=== PATIENT | female | born 1990 | race Caucasian/White ===

== ENCOUNTER 2016-11-16 18:32 | Emergency (ER) | payer OTHER ==
[~2016-11-16] VITALS: Ht 160 cm; Wt 55.0 kg
[2016-11-16 18:45] VITALS: Ht 160 cm; Wt 55.0 kg
[2016-11-16] MEDS ORDERED: SOD CHLORIDE 0.9% 1,000 ML IV STA (18:48)
[2016-11-16 20:00] LABS: ADD UMIC YES; UR ASCORBIC ACID 40 mg/dL (NEGATIVE); UR BACTERIA FEW /HPF (NONE SEEN); UR BILIRUBIN (Dip) NEGATIVE (NEGATIVE); UR BLOOD (Dip) NEGATIVE (NEGATIVE); UR CLARITY SLIGHTLY CLOUDY (CLEAR); UR COLOR YELLOW (YELLOW); UR GLUCOSE (Dip) NEGATIVE (NEGATIVE); UR KETONES (Dip) NEGATIVE (NEGATIVE); UR LEUKOCYTE ESTERASE (Dip) NEGATIVE Leu/ul (NEGATIVE); UR MUCUS MANY /HPF (NONE SEEN); UR NITRITE (Dip) NEGATIVE (NEGATIVE); UR RBC 1 /HPF (0-5); UR SPECIFIC GRAVITY (Dip) 1.031 (1.003-1.030); UR SQUAMOUS EPITHELIAL CELL FEW /HPF (FEW); UR TOTAL PROTEIN (Dip) 2+ mg/dl (NEGATIVE); UR UROBILINOGEN (Dip) NEGATIVE (NEGATIVE)
[2016-11-16 20:12] LABS: BASOPHILS % 0.3 % (0.0-2.0); EOSINOPHILS % 0.2 % (0.0-7.0); HEMATOCRIT 30.6 % (37.0-47.0); HEMOGLOBIN 9.3 g/dl (12.0-16.0); LYMPHOCYTES # 1.1 10^3/ul (0.8-2.9); LYMPHOCYTES % 16.4 % (15.0-51.0); MEAN CORPUSCULAR HEMOGLOBIN 25.7 pg (29.0-33.0); MEAN CORPUSCULAR HGB CONC 30.4 g/dl (32.0-37.0); MEAN CORPUSCULAR VOLUME 84.5 fl (82.0-101.0); MEAN PLATELET VOLUME 8.6 fl (7.4-10.4); MONOCYTE # 0.6 10^3/ul (0.3-0.9); MONOCYTES % 8.4 % (0.0-11.0); NEUTROPHILS % 74.5 % (39.0-77.0); PLATELET COUNT 395 10^3/UL (140-415); RED BLOOD COUNT 3.62 10^6/ul (4.20-5.40); RED CELL DISTRIBUTION WIDTH 15.2 % (11.5-14.5); WHITE BLOOD COUNT 6.6 10^3/ul (4.8-10.8)
[2016-11-16 20:30] VITALS: TEMP 98.3
[2016-11-16 20:32] LABS: ALANINE AMINOTRANSFERASE 23 IU/L (13-69); ALBUMIN 4.3 g/dl (3.3-4.9); ALBUMIN/GLOBULIN RATIO 1.16; ALKALINE PHOSPHATASE 55 IU/L (42-121); ANION GAP 16 (8-16); ASPARTATE AMINO TRANSFERASE 23 IU/L (15-46); BILIRUBIN,INDIRECT 0.9 mg/dl (0-1.1); BILIRUBIN,TOTAL 0.9 mg/dl (0.2-1.3); BLOOD UREA NITROGEN 22 mg/dl (7-20); CALCIUM 8.9 mg/dl (8.4-10.2); CARBON DIOXIDE 20 mmol/L (21-31); CHLORIDE 112 mmol/L (97-110); CREATININE 0.78 mg/dl (0.44-1.00); GLUCOSE 83 mg/dl (70-220); POTASSIUM 3.5 mmol/L (3.5-5.1); SODIUM 144 mmol/L (135-144)
[2016-11-16 20:35] LABS: BARBITURATES Negative (NEGATIVE); BENZODIAZEPINES Negative (NEGATIVE); CANNABINOIDS Negative (NEGATIVE)
[2016-11-16 20:36] LABS: COCAINE POSITIVE (NEGATIVE); OPIATES POSITIVE (NEGATIVE)
[2016-11-16 20:37] LABS: ACETAMINOPHEN < 10.0 ug/ml (10.0-30.0); ETHANOL < 10.0 mg/dl; SALICYLATE < 1.0 mg/dl (5.0-30.0)
--- NOTE | 2016-11-16 22:09 | PSY ---
Date/Time of Note Date/Time of Note DATE: 11/16/16 TIME: 22:02 Psychiatric Subjective Eval Consent Pt consented to telemedicine: Yes Subjective Evaluation Patient location: emergency Chief Complaint: BIBA for possible overdose and ETOH Reason for consult: Evaluation History of present illness Pt is a 26 year old female with a history of childhood trauma who was brought in by ambulance after being found unconscious by her family. Pt reports she drank "a lot" and used meth today. She has been using meth daily for about two years. She also misuses alcohol. Pt reports feeling depressed. She has tried medications and is currently in counseling but feels alone with her trauma. Patient does admit to suicidal ideation at times but denies this was a suicide attempt. Pt is interested in discontinuing her drug use. Past psychiatric history History of therapy but has recently started with a new counselor. Antidepressant medications have been tried. Pt is using trazodone for insomnia. Hospitalization: no Family History Denies Medical history Reports recent kidney infection and using an antibiotic Substance Abuse Substance abuse history: Yes (meth, alcohol) Social History Marital status: single Level of education: HS DPA/Conservatorship: No Occupation/Halfway: N/A Psychiatric Objective Eval Mental Status Examination: Appearance: Groomed Eye Contact: Good Psychomotor Activity: Normal Behavior: Cooperative Speech: Clear AFFECT: Appropriate, Depressed Mood: Appropriate/Full, Depressed Though Process: Linear Thought Content: Normal Suicidal: No Homicidal: No On 72 hour hold: No Orientation: x4 Cognition: Alert Insight: Intact Judgement: Impared Attention Span: Intact Laboratory Results Laboratory Tests Test 11/16/16 19:00 11/16/16 19:06 11/16/16 19:24 White Blood Count 6.610^3/ul Red Blood Count 3.6210^6/ul Hemoglobin 9.3g/dl Hematocrit 30.6% Mean Corpuscular Volume 84.5fl Mean Corpuscular Hemoglobin 25.7pg Mean Corpuscular Hemoglobin Concent 30.4g/dl Red Cell Distribution Width 15.2% Platelet Count 45485^3/UL Mean Platelet Volume 8.6fl Neutrophils % 74.5% Lymphocytes % 16.4% Monocytes % 8.4% Eosinophils % 0.2% Basophils % 0.3% Nucleated Red Blood Cells % 0.0/100WBC Neutrophils # (Manual) 4.910^3/ul Lymphocytes # 1.110^3/ul Monocytes # 0.610^3/ul Eosinophils # 0.010^3/ul Basophils # 0.010^3/ul Nucleated Red Blood Cells # 0.010^3/ul Sodium Level 144mmol/L Potassium Level 3.5mmol/L Chloride Level 112mmol/L Carbon Dioxide Level 20mmol/L Anion Gap 16 Blood Urea Nitrogen 22mg/dl Creatinine 0.78mg/dl Glucose Level 83mg/dl Calcium Level 8.9mg/dl Total Bilirubin 0.9mg/dl Direct Bilirubin 0.00mg/dl Indirect Bilirubin 0.9mg/dl Aspartate Amino Transf (AST/SGOT) 23IU/L Alanine Aminotransferase (ALT/SGPT) 23IU/L Alkaline Phosphatase 55IU/L Total Protein 8.0g/dl Albumin 4.3g/dl Globulin 3.70g/dl Albumin/Globulin Ratio 1.16 Serum HCG, Qualitative NEGATIVE Salicylates Level < 1.0mg/dl Acetaminophen Level < 10.0ug/ml Ethyl Alcohol Level < 10.0mg/dl Bedside Glucose 81mg/dL Urine Color YELLOW Urine Clarity SLIGHTLY CLOUDY Urine pH 5.0 Urine Specific [place] 1.031 Urine Ketones NEGATIVEmg/dL Urine Nitrite NEGATIVEmg/dL Urine Bilirubin NEGATIVEmg/dL Urine Urobilinogen NEGATIVEmg/dL Urine Leukocyte Esterase NEGATIVELeu/ul Urine Microscopic RBC 1/HPF Urine Microscopic WBC 3/HPF Urine Squamous Epithelial Cells FEW/HPF Urine Bacteria FEW/HPF Urine Mucus MANY/HPF Urine Hemoglobin NEGATIVEmg/dL Urine Glucose NEGATIVEmg/dL Urine Total Protein 2+mg/dl Urine Opiates Screen POSITIVE Urine Barbiturates Negative Urine Amphetamines Screen POSITIVE Urine Benzodiazepines Screen Negative Urine Cocaine Screen POSITIVE Urine Cannabinoids Negative Assessment and Plan Assessment/Diagnosis [place] I: Stimulant Use Disorder, Alcohol Use Disorder, Possible PTSD Recommendation/Plan Medication Management Continue outpatient medications. Would not recommend any changes until patient has addressed her drug use issues. Psychotherapy Brief support Pt. Caregiver/Family Education N/A Follow-up/Disposition Please provide AA, NA and any other substance abuse programs in the area. While she is at risk for self harm due to her drug use, this does not appear to be her intent. Pt denies that she is actively suicidal and denies that this was an attempt. However, if she continues to use meth daily and binge alcohol, her prognosis is poor. ISI HOLLAND Nov 16, 2016 22:09
--- NOTE | 2016-11-16 22:24 | ERD ---
ER Documentation Chief Complaint Date/Time DATE: 11/16/16 TIME: 22:24 Chief Complaint BIBA for possible overdose and ETOH HPI 26 year old female BIB EMS for possible overdose. Per the family, patient has a hisotyr of substance abuse, depression, and suicide attempt by overdose. Initially when the patient arrived, she was unconscious. On seen, the paramedics state the patient was intoxicated appearing and combative at home with vomit on her. History was initially limited as the patient was altered. No substances or pills found on scene Family unaware of medications patient is on , if any. ROS All systems reviewed and are negative except as per history of present illness. PMhx/Soc Medical and Surgical Hx: Unable to obtain Hx Alcohol Use: Yes (Per EMS) Hx Substance Use: Yes (Per EMS) Smoking Status: Unknown if ever smoked FmHx Family History: other Physical Exam Vitals Vital Signs Date Time Temp Pulse Resp B/P Pulse Ox O2 Delivery O2 Flow Rate FiO2 11/16/16 23:05 77 16 116/78 99 Room Air 11/16/16 21:43 96 16 119/79 99 11/16/16 20:30 98.3 108 18 130/81 99 Room Air 11/16/16 18:45 97.9 116 20 128/79 99 Physical Exam Const: sleeping but arousable, nontoxic, no distress Head: Atraumatic Eyes: Normal Conjunctiva, PERRLA, ENT: Normal External Ears, Nose and Mouth. Tongue normal. No stridor Neck: Supple Resp: protecting airway, Clear to auscultation bilaterally Cardio: tachycardic, regular rhythm, no murmurs Abd: Soft, non tender, non distended. Normal bowel sounds Skin: No petechiae or rashes Back: No midline or flank tenderness Ext: No cyanosis, or edema Neur: Sleeping, arousable, answers questions appri=opriately, moving all extremities spontaneously Psych: Depressed mood, flat affect, soft spoken, +suicidal thoughts, no HI or hallucinations Result Diagram: 11/16/16189911/16/161899 Results 24 hrs Laboratory Tests Test 11/16/16 19:00 11/16/16 19:06 11/16/16 19:24 White Blood Count 6.610^3/ul Red Blood Count 3.6210^6/ul Hemoglobin 9.3g/dl Hematocrit 30.6% Mean Corpuscular Volume 84.5fl Mean Corpuscular Hemoglobin 25.7pg Mean Corpuscular Hemoglobin Concent 30.4g/dl Red Cell Distribution Width 15.2% Platelet Count 95512^3/UL Mean Platelet Volume 8.6fl Neutrophils % 74.5% Lymphocytes % 16.4% Monocytes % 8.4% Eosinophils % 0.2% Basophils % 0.3% Nucleated Red Blood Cells % 0.0/100WBC Neutrophils # (Manual) 4.910^3/ul Lymphocytes # 1.110^3/ul Monocytes # 0.610^3/ul Eosinophils # 0.010^3/ul Basophils # 0.010^3/ul Nucleated Red Blood Cells # 0.010^3/ul Sodium Level 144mmol/L Potassium Level 3.5mmol/L Chloride Level 112mmol/L Carbon Dioxide Level 20mmol/L Anion Gap 16 Blood Urea Nitrogen 22mg/dl Creatinine 0.78mg/dl Glucose Level 83mg/dl Calcium Level 8.9mg/dl Total Bilirubin 0.9mg/dl Direct Bilirubin 0.00mg/dl Indirect Bilirubin 0.9mg/dl Aspartate Amino Transf (AST/SGOT) 23IU/L Alanine Aminotransferase (ALT/SGPT) 23IU/L Alkaline Phosphatase 55IU/L Total Protein 8.0g/dl Albumin 4.3g/dl Globulin 3.70g/dl Albumin/Globulin Ratio 1.16 Serum HCG, Qualitative NEGATIVE Salicylates Level < 1.0mg/dl Acetaminophen Level < 10.0ug/ml Ethyl Alcohol Level < 10.0mg/dl Bedside Glucose 81mg/dL Urine Color YELLOW Urine Clarity SLIGHTLY CLOUDY Urine pH 5.0 Urine Specific [place] 1.031 Urine Ketones NEGATIVEmg/dL Urine Nitrite NEGATIVEmg/dL Urine Bilirubin NEGATIVEmg/dL Urine Urobilinogen NEGATIVEmg/dL Urine Leukocyte Esterase NEGATIVELeu/ul Urine Microscopic RBC 1/HPF Urine Microscopic WBC 3/HPF Urine Squamous Epithelial Cells FEW/HPF Urine Bacteria FEW/HPF Urine Mucus MANY/HPF Urine Hemoglobin NEGATIVEmg/dL Urine Glucose NEGATIVEmg/dL Urine Total Protein 2+mg/dl Urine Opiates Screen POSITIVE Urine Barbiturates Negative Urine Amphetamines Screen POSITIVE Urine Benzodiazepines Screen Negative Urine Cocaine Screen POSITIVE Urine Cannabinoids Negative Current Medications Medications (Trade) Dose Ordered Sig/Rajat Route PRN Reason Start Time Stop Time Status Last Admin Dose Admin Sodium Chloride (NS) 1,000 ml @ 1,000 mls/hr Q1H STAT IV 11/16/16 18:48 11/16/16 19:47 DC 11/16/16 19:37 Procedures/MDM CBC: anemia CMP: unremarkable ETOH normal UDS: +amphetamines, cocaine, opiates Tylenol negative Salicylates negative Preg test negative UA no significant abnormalities MDM When patient arrived, she was sleepy but soon became more alert. I spoke with her and she admits to drinking alcohol and using drugs, but denies medication overdose. She does state she is sad and has thoughts of hurting herself. Telepsychiatry evaluated the patient and do not think she meets criteria for a hold or hospitalization. Outpatient resources for mental health and substance abuse were provided. Patient discharged in stable condition and encouraged to reutnr for any thoughts of suicide or other concerns Departure Diagnosis: Primary Impression: Intoxication Additional Impressions: Polysubstance (excluding opioids) dependence Depressed Depression Type: unspecified Qualified Code: F32.9 - Depression, unspecified depression type Condition: OMAIRA Morales MD Nov 16, 2016 22:24
[2016-11-16 23:05] VITALS: BP 116/78; PULSE 77; RESP 16
== END 2016-11-16 23:06 | disposition home or self-care (01) ==
LOC: E/R 18:32
DX: F10.120 Alcohol abuse with intoxication, uncomplicated (principal); R40.2242 Coma scale, best verbal response, confused conversation, at arrival to emergency department; F19.10 Other psychoactive substance abuse, uncomplicated; F32.9 Major depressive disorder, single episode, unspecified; R40.2142 Coma scale, eyes open, spontaneous, at arrival to emergency department; R40.2362 Coma scale, best motor response, obeys commands, at arrival to emergency department; R40.4 Transient alteration of awareness
CPT/HCPCS: 80053; 80306; 80307; 81001; 82962; 84703; 85025; 93005; J7030; P9612; Z7502